=== PATIENT | female | born 1990 | race Caucasian/White ===

== ENCOUNTER 2017-07-30 14:42 | Emergency (ER) | payer OTHER ==
[~2017-07-30] VITALS: Ht 160 cm; Wt 65.0 kg
[2017-07-30 15:16] LABS: HEMOGLOBIN 13.1 G/DL (11.9-15.5); MCH 34.2 PG (29.0-34.0); MCHC 36.4 G/DL (30.0-36.0); PLATELET COUNT 303 K/uL (156-360); RBC DIS.WIDTH-CV 11.1 % (11.8-14.6); RBC DIS.WIDTH-SD 37.3 % (39-53); RED BLOOD COUNT 3.83 M/uL (3.80-5.20); WHITE BLOOD COUNT 11.2 K/uL (4.1-10.2)
[2017-07-30 15:28] LABS: ALBUMIN 4.4 g/dL (3.2-4.8); CHLORIDE 101 mEq/L (99-109); SODIUM 135 mEq/L (136-147)
[2017-07-30 15:30] LABS: GLUCOSE 116 mg/dL (70-99); TOTAL PROTEIN 7.6 g/dL (6.4-8.3)
[2017-07-30 15:32] LABS: TOTAL BILIRUBIN 0.3 mg/dL (0.0-1.0)
[2017-07-30 15:34] LABS: ALKALINE PHOSPHATASE 40 IU/L (3-129); CREATININE 0.7 mg/dL (0.6-1.3); GFR ESTIMATE (CALCULATED) > 59 mL/min/
[2017-07-30 15:35] LABS: UREA NITROGEN (BUN) 14 mg/dL (9-23)
[2017-07-30 15:36] LABS: AST (GOT) 19 IU/L (2-34)
[2017-07-30 15:37] LABS: ALT (GPT) 16 IU/L (3-49)
[2017-07-30 16:02] LABS: QUANTITATIVE HCG 51879.7 MIU/ML
[2017-07-30 16:12] LABS: APPEARANCE SL.HAZY ((CLEAR)); BILIRUBIN NEGATIVE; BLOOD NEGATIVE; COLOR YELLOW ((YELLOW)); GLUCOSE (STRIP) NEGATIVE; KETONES 20; LEUKOCYTES NEGATIVE; NITRITE NEGATIVE; PROTEIN (STRIP) 30; SPECIFIC GRAVITY 1.028 (1.000-1.030); UROBILINOGEN 0.2 MG/DL (0.2-1.0)
[2017-07-30 16:16] LABS: BACTERIA RARE /HPF; EPITHELIAL CELLS RARE /HPF; MUCUS 1+ /LPF; RED BLOOD CELLS 0-5 /HPF (0-5); UCUL ADDED? NO; WHITE BLOOD CELLS 0-5 /HPF (0-5)
[2017-07-30 17:14] LABS: LIPASE 17 U/L (1.0-51.0)
[2017-07-30] MEDS ORDERED: ZOFRAN4 MG PO (18:04)
[2017-07-30 18:12] VITALS: BP 119/74
== END 2017-07-30 18:12 | disposition home or self-care (01) ==
LOC: RME 14:42 → EME 14:42 → RME 18:12
DX: O21.9 Vomiting of pregnancy, unspecified (principal); Z3A.12 12 weeks gestation of pregnancy; Z88.0 Allergy status to penicillin
CPT/HCPCS: 80053; 81003; 83690; 84702; 85027; 99281; 99284; J2405; J7030